=== PATIENT | female | born 1950 | race Caucasian/White ===

== ENCOUNTER 2021-06-27 09:51 | Inpatient (IN) | payer OTHER, MEDICARE ==
[~2021-06-27] VITALS: Ht 165.1 cm; Wt 98.4 kg
[2021-06-27 11:24] LABS: HEMOGLOBIN 15.6 gm/dl (12.3-15.3); RED BLOOD COUNT 5.7 M/UL (4.00-5.10); WHITE BLOOD COUNT 11.6 K/UL (4.5-11.0)
[2021-06-27] MEDS ORDERED: HUMULIN R500 UNIT/1 SQ ×2 (13:45→13:47)
[2021-06-27] MEDS ORDERED: LISINOPRIL10 MG PO (13:47)
[2021-06-27] MEDS ORDERED: ATORVASTATIN CA40 MG PO (13:47)
[2021-06-27] MEDS ORDERED: METOPROLOL TART50 MG PO (13:48)
[2021-06-27] MEDS ORDERED: PREGABALIN225 MG PO (13:48)
[2021-06-27] MEDS ORDERED: PROBIOTIC1 EAC2 PO (13:48)
[2021-06-28 04:22] LABS: HEMOGLOBIN 13.7 gm/dl (12.3-15.3); RED BLOOD COUNT 5.27 M/UL (4.00-5.10); WHITE BLOOD COUNT 9.3 K/UL (4.5-11.0)
--- NOTE | 2021-06-28 21:42 | NUR ---
PT NOTED TO BE MORE LETHARGIC. WHEN STIMULATED SHE AROUSES AND RESPONDS BY VOICE BUT IS UNABLE TO FOLLOW COMMANDS TO SWALLOW HER MEDICATIONS. MEDICINE WASTED AND NOTIFIED MD OF PTS NEURO CHANGES. RESP AT BEDSIDE TO DO ABG.
--- NOTE | 2021-06-28 21:58 | NUR ---
ATTEMPTED TO CALL PTS SON RD FOR CONSENT FOR SURGERY AND TO UPDATE ON PATIENTS STATUS. UNABLE TO GET AHOLD OF HIM. LEFT MESSAGE.
--- NOTE | 2021-06-28 22:28 | NUR ---
SPOKE WITH PATIENTS SON RD LAWRENCE AND OBTAINED TELEPHONE CONSENT FOR SURGERY TOMBRENNA. EXPLAINED ALL RISKS AND UPDATED HIM ON THE PATIENTS CONDITION. CONSENT SIGNED WITH DANISHA MONET, AND MYSELF.
--- NOTE | 2021-06-29 03:15 | NUR ---
LATE ENTRY 06/29/21 0240 REPORT CALLED TO KEVIN MONET. VITALS ARE FOLLOWS HR 89 RR 27 02 95% SETTINGS 22/8 RR 30 O2 35% BP 124/55. PT TAKEN TO CCU WITH RN, TECH AND RT. TOLERATED TRANSFER WELL.
[2021-06-29 04:11] LABS: HEMOGLOBIN 13.4 gm/dl (12.3-15.3); RED BLOOD COUNT 4.95 M/UL (4.00-5.10); WHITE BLOOD COUNT 8.2 K/UL (4.5-11.0)
[2021-06-30 05:28] LABS: HEMOGLOBIN 12.9 gm/dl (12.3-15.3); RED BLOOD COUNT 4.77 M/UL (4.00-5.10); WHITE BLOOD COUNT 7.6 K/UL (4.5-11.0)
[2021-06-30 05:45] LABS: BUN/CREATININE RATIO 21 (0-10)
--- NOTE | 2021-06-30 12:00 | NUR ---
PT ARRIVED TO FLOOW VIA BED, ALERT AND ORIENTED, VSS, F/C NOTED, STAGE II ON COCCYX NOTED COVERED WITH ALLYVEN, EXTERNAL FIXATOR TO RIGHT ANKLE ALSO NOTED, O2 ON 4L NC, RIGHT AC IV NOTED, WILL CONTINUE TO MONITOR
[2021-07-01 08:36] LABS: HEMOGLOBIN 13.3 gm/dl (12.3-15.3); RED BLOOD COUNT 4.8 M/UL (4.00-5.10); WHITE BLOOD COUNT 7.3 K/UL (4.5-11.0)
[2021-07-03 04:31] LABS: BUN/CREATININE RATIO 23 (0-10)
[2021-07-05 04:58] LABS: BUN/CREATININE RATIO 24 (0-10)
[2021-07-08 06:26] LABS: HEMOGLOBIN 12.8 gm/dl (12.3-15.3); RED BLOOD COUNT 4.85 M/UL (4.00-5.10); WHITE BLOOD COUNT 6.3 K/UL (4.5-11.0)
[2021-07-08 07:02] LABS: BUN/CREATININE RATIO 14 (0-10)
[2021-07-09] MEDS ORDERED: PERCOCET 5/325 T1 EA PO (09:01)
[2021-07-09] MEDS ORDERED: PREGABALIN225 MG PO (09:01)
[2021-07-09] MEDS ORDERED: HUMALOG 10100 UNITS/ SC (09:01)
[2021-07-09] MEDS ORDERED: ENOXAPARIN40 MG/0.4 SC (09:01)
[2021-07-09] MEDS ORDERED: IPRAT-ALBUT 0.5-3 ML NEB (09:01)
[2021-07-09] MEDS ORDERED: AMLODIPINE BESYL5 MG PO (09:01)
[2021-07-09] MEDS ORDERED: LANTUS INS100 UTS/M1 SQ (09:01)
[2021-07-10 07:31] LABS: HEMOGLOBIN 13.5 gm/dl (12.3-15.3); RED BLOOD COUNT 5.12 M/UL (4.00-5.10); WHITE BLOOD COUNT 5.4 K/UL (4.5-11.0)
[2021-07-10 07:46] LABS: BUN/CREATININE RATIO 16 (0-10)
[2021-07-18 02:56] LABS: HEMOGLOBIN 13.1 gm/dl (12.3-15.3); RED BLOOD COUNT 4.8 M/UL (4.00-5.10); WHITE BLOOD COUNT 6.1 K/UL (4.5-11.0)
[2021-07-18 03:23] LABS: BUN/CREATININE RATIO 28 (0-10)
[2021-07-19 10:41] LABS: HEMOGLOBIN 13.3 gm/dl (12.3-15.3); RED BLOOD COUNT 4.84 M/UL (4.00-5.10)
[2021-07-19 10:43] LABS: WHITE BLOOD COUNT 4.5 K/UL (4.5-11.0)
[2021-07-19 11:36] LABS: BUN/CREATININE RATIO 26 (0-10)
[2021-07-20 04:48] LABS: HEMOGLOBIN 13.7 gm/dl (12.3-15.3); RED BLOOD COUNT 4.94 M/UL (4.00-5.10); WHITE BLOOD COUNT 5.5 K/UL (4.5-11.0)
[2021-07-20 05:58] LABS: BUN/CREATININE RATIO 23 (0-10)
[2021-07-21 03:11] LABS: HEMOGLOBIN 13.6 gm/dl (12.3-15.3); RED BLOOD COUNT 4.95 M/UL (4.00-5.10); WHITE BLOOD COUNT 5.3 K/UL (4.5-11.0)
[2021-07-21 03:43] LABS: BUN/CREATININE RATIO 25 (0-10)
[2021-07-22 09:43] LABS: HEMOGLOBIN 13.9 gm/dl (12.3-15.3)
[2021-07-22 10:01] LABS: BUN/CREATININE RATIO 22 (0-10)
[2021-07-23 11:02] LABS: HEMOGLOBIN 13.2 gm/dl (12.3-15.3); RED BLOOD COUNT 4.85 M/UL (4.00-5.10)
[2021-07-23 11:26] LABS: BUN/CREATININE RATIO 19 (0-10)
[2021-07-24 04:28] LABS: HEMOGLOBIN 13.7 gm/dl (12.3-15.3)
[2021-07-24 04:30] LABS: WHITE BLOOD COUNT 5.8 K/UL (4.5-11.0)
[2021-07-24 04:51] LABS: BUN/CREATININE RATIO 26 (0-10)
[2021-08-01] MEDS ORDERED: NYSTATIN60 GM TOP (14:25)
[2021-08-01] MEDS ORDERED: POLYETHYLENE GL17 GM PO (14:25)
[2021-08-01] MEDS ORDERED: LANTUS INS100 UTS/M1 SQ (14:25)
[2021-08-01] MEDS ORDERED: DOCUSATE SODIU100 MG PO (14:25)
== END 2021-08-01 18:09 | DRG 562 ==
LOC: ER1 09:51 → CDU 12:56 → MED SURG 4 12:56 → PROG CARE 12:56 → CCU 06-29 03:04 → PROG CARE 06-30 11:58 → MED SURG 4 07-07 00:37
PROVIDERS: Emergency Medicine; Internal Medicine; Nurse Practitioner Family; Physician Assistant; ADMIT Internal Medicine
PROC: 5A09457 Assistance with Respiratory Ventilation, 24-96 Consecutive Hours, Continuous Positive Airway Pressure (ICD-10-PCS; principal; 2021-06-27)
PROC: B24BZZZ Ultrasonography of Heart with Aorta (ICD-10-PCS; 2021-06-28)
PROC: 0SSG35Z Reposition Left Ankle Joint with External Fixation Device, Percutaneous Approach (ICD-10-PCS; 2021-06-29)
DX: S82.852A Displaced trimalleolar fracture of left lower leg, initial encounter for closed fracture (principal); J96.02 Acute respiratory failure with hypercapnia; Z20.822 Contact with and (suspected) exposure to COVID-19; J96.01 Acute respiratory failure with hypoxia; G92.8 Other toxic encephalopathy; I47.1 Supraventricular tachycardia; E87.3 Alkalosis; N30.00 Acute cystitis without hematuria; E66.2 Morbid (severe) obesity with alveolar hypoventilation; D62 Acute posthemorrhagic anemia; S82.452A Displaced comminuted fracture of shaft of left fibula, initial encounter for closed fracture; E11.40 Type 2 diabetes mellitus with diabetic neuropathy, unspecified; E11.649 Type 2 diabetes mellitus with hypoglycemia without coma; E78.5 Hyperlipidemia, unspecified; I25.10 Atherosclerotic heart disease of native coronary artery without angina pectoris; I11.0 Hypertensive heart disease with heart failure; I95.9 Hypotension, unspecified; W01.0XXA Fall on same level from slipping, tripping and stumbling without subsequent striking against object, initial encounter; G47.33 Obstructive sleep apnea (adult) (pediatric); B37.2 Candidiasis of skin and nail; I50.9 Heart failure, unspecified; K59.00 Constipation, unspecified; L89.322 Pressure ulcer of left buttock, stage 2; I35.0 Nonrheumatic aortic (valve) stenosis; Z95.4 Presence of other heart-valve replacement; Z95.1 Presence of aortocoronary bypass graft; Z90.49 Acquired absence of other specified parts of digestive tract; Z98.890 Other specified postprocedural states; Z91.14 Patient's other noncompliance with medication regimen; Z79.899 Other long term (current) drug therapy; Z79.4 Long term (current) use of insulin; Z68.36 Body mass index [BMI] 36.0-36.9, adult
CPT/HCPCS: ECHO; 0240U; 36415; 36600; 70450; 71045; 72170; 72192; 73590; 73600; 73610; 73700; 76000; 80048; 80053; 80307; 81001; 82140; 82803; 82962; 83605; 83735; 83880; 85025; 85027; 85379; 85610; 85730; 86850; 86900; 86901; 87040; 87086; 87278; 93005; 93306; 94640; 94660; 94664; 94760; 96374; 97110; 97110-GP-CQ; 97162; 97166; 97530; 97530-GP-CQ; 97535; 99284; C1713; J0456; J0696; J1100; J1630; J1650; J1940; J2270; J2400; J2405; J2704; J3010; J3475; J3486; J7030; J7050; J7120; Q9967; U0002